=== PATIENT | male | born 1990 | race Asian ===

== ENCOUNTER 2019-10-24 13:04 | Outpatient (CLI) | payer BC | END 2019-10-24 13:05 | disposition home or self-care (01) | LOC: COV 13:04 | PROVIDERS: ATTEND Family Medicine | DX: Z20.828 Contact with and (suspected) exposure to other viral communicable diseases (principal) ==

== ENCOUNTER 2020-04-25 10:40 | Outpatient (CLI) | payer BC | END 2020-04-25 23:59 | disposition home or self-care (01) | LOC: COV 10:40 | PROVIDERS: ATTEND Family Medicine | DX: Z20.822 Contact with and (suspected) exposure to COVID-19 (principal) ==